=== PATIENT | female | born 1980 | race Caucasian/White ===

== ENCOUNTER 2018-04-09 20:28 | Emergency (ER) | payer OTHER | END 2018-04-09 21:36 | disposition home or self-care (01) | LOC: FTE 20:28 | DX: J30.9 Allergic rhinitis, unspecified (principal); E11.9 Type 2 diabetes mellitus without complications; Z79.84 Long term (current) use of oral hypoglycemic drugs | CPT/HCPCS: 99283 ==

== ENCOUNTER 2018-04-18 20:23 | Emergency (ER) | payer OTHER | END 2018-04-18 22:18 | disposition home or self-care (01) | LOC: FTE 20:23 | DX: L03.031 Cellulitis of right toe (principal); S91.201A Unspecified open wound of right great toe with damage to nail, initial encounter; E11.9 Type 2 diabetes mellitus without complications; F17.210 Nicotine dependence, cigarettes, uncomplicated; X58.XXXA Exposure to other specified factors, initial encounter; Y92.9 Unspecified place or not applicable; Z79.84 Long term (current) use of oral hypoglycemic drugs | CPT/HCPCS: 99284; Z7502 ==

== ENCOUNTER 2018-04-28 23:18 | Emergency (ER) | payer OTHER | END 2018-04-29 05:31 | disposition home or self-care (01) | LOC: FTE 23:18 | DX: Z48.01 Encounter for change or removal of surgical wound dressing (principal); E11.9 Type 2 diabetes mellitus without complications; F17.210 Nicotine dependence, cigarettes, uncomplicated; Z79.84 Long term (current) use of oral hypoglycemic drugs | CPT/HCPCS: 99283; Z7502 ==